=== PATIENT | female | born 1955 | race Two or more races ===

== ENCOUNTER 2023-10-09 10:45 | Inpatient (IN) | payer MEDICAID, OTHER ==
[~2023-10-09] VITALS: Ht 154.9 cm; Wt 60.0 kg
[2023-10-09 11:22] LABS: Basophils # (auto) 0 10 ^3/uL (0-0.2); Basophils % (auto) 0.6 % (0.0-2.0); Eosinophils # (auto) 0.1 10 ^3/uL (0-0.8); Eosinophils % (auto) 1.1 % (0.0-7.0); Hemoglobin 15.2 g/dL (12.2-16.2); Lymphocytes # (auto) 2.1 10 ^3/uL (0.4-5.4); Lymphocytes % (auto) 33.8 % (10.0-50.0); Mean Corpuscular Hemoglobin 28.6 pg (28.0-32.0); Mean Corpuscular Hgb Conc. 33.8 g/dL (32.0-36.0); Mean Corpuscular Volume 84.8 fL (80.0-100.0); Monocytes # (auto) 0.4 10 ^3/uL (0-1.3); Monocytes % (auto) 5.9 % (0.0-12.0); Neutrophils # (auto) 3.6 10 ^3/uL (1.6-8.6); Neutrophils % (auto) 58.6 % (37.0-80.0); Red Cell Distribution Width 13.7 % (11.8-14.3); White Blood Cell 6.2 10^3/uL (4.4-10.8)
[2023-10-09 11:30] LABS: Chloride 107 mmol/L (98-107); Potassium 3.5 mmol/L (3.5-5.1); Sodium 141 mmol/L (136-145)
[2023-10-09 11:31] LABS: Anion Gap 6 (5-15); Carbon Dioxide 28 mmol/L (20-30)
[2023-10-09 11:32] LABS: Calcium 9.6 mg/dL (8.7-10.4)
[2023-10-09 11:37] LABS: BUN/Creatinine Ratio 12.5 (10.0-20.0); Blood Urea Nitrogen 8 mg/dL (9-23); Glucose 105 mg/dL (74-106)
[2023-10-09] MEDS ORDERED: hydrALAZINE HCL 20 MG/ML VL IV PRN (15:30)
[2023-10-09] MEDS ORDERED: MORPHINE SULFATE INJ 2 MG/ml SYRG IV PRN (15:30)
[2023-10-09] MEDS ORDERED: DOCUSATE SOD 100 MG CAP PO PRN (15:30)
[2023-10-09] MEDS ORDERED: ONDANSETRON HCL 4 MG/2 ML VIAL IV PRN (15:30)
[2023-10-09] MEDS ORDERED: ACETAMINOPHEN 325 MG TAB PO PRN (15:30)
[2023-10-09] MEDS ORDERED: NITROGLYCERIN 0.4 MG SL TAB SL PRN (15:30)
[2023-10-09 16:09] LABS: Urine Bacteria FEW /hpf (None Seen); Urine Blood Negative /uL (Negative); Urine Clarity Clear (Clear); Urine Color Colorless (Yellow); Urine Protein, UAD Negative (Negative); Urine Specific Gravity 1.009 (1.001-1.035); Urine Urobilinogen Normal (Negative); Urine WBC 1 /hpf (0 - 5)
[2023-10-09 20:40] VITALS: PULSE 69; RESP 16; O2SAT 98
[2023-10-09] MEDS: LISINOPRIL 5 MG TAB PO ONE (20:49)
[2023-10-09] MEDS: ASPirin 81 mg TAB PO ONE (20:49)
[2023-10-09] MEDS: hydroCHLOROthiazide 25 MG TAB PO ONE (20:49)
[2023-10-09] MEDS: cloNIDine HCL 0.1 MG TAB PO ONE (20:50)
[2023-10-09 22:28] VITALS: BP 125/59; PULSE 59; RESP 16; TEMP 97.9; O2SAT 98
[2023-10-10] VITALS (9 sets, daily range): BP systolic 90–143; BP diastolic 38–74; PULSE 61–79; RESP 16–19; TEMP 97.6–99.3; O2SAT 92–100
[2023-10-10 06:27] LABS: Basophils # (auto) 0 10 ^3/uL (0-0.2); Basophils % (auto) 0.6 % (0.0-2.0); Eosinophils # (auto) 0.1 10 ^3/uL (0-0.8); Hematocrit 37.9 % (36.0-46.0); Lymphocytes # (auto) 1.5 10 ^3/uL (0.4-5.4); Lymphocytes % (auto) 29.8 % (10.0-50.0); Mean Corpuscular Hgb Conc. 34.4 g/dL (32.0-36.0); Mean Corpuscular Volume 84.3 fL (80.0-100.0); Monocytes # (auto) 0.4 10 ^3/uL (0-1.3); Neutrophils # (auto) 2.9 10 ^3/uL (1.6-8.6); Neutrophils % (auto) 59.6 % (37.0-80.0); Red Cell Distribution Width 13.6 % (11.8-14.3); White Blood Cell 4.9 10^3/uL (4.4-10.8)
[2023-10-10 06:31] LABS: Alanine Aminotransferase 26 U/L (7-40); Albumin 3.8 g/dL (3.2-4.8); Alkaline Phosphatase 94 U/L (46-116); Anion Gap 10 (5-15); Aspartate Aminotransferase 23 U/L (13-40); BUN/Creatinine Ratio 19.5 (10.0-20.0); Blood Urea Nitrogen 17 mg/dL (9-23); Carbon Dioxide 24 mmol/L (20-30); Chloride 107 mmol/L (98-107); Glucose 103 mg/dL (74-106); LDL Cholesterol 160 mg/dL (< 100); Potassium 3.7 mmol/L (3.5-5.1); Sodium 141 mmol/L (136-145); Triglycerides 154 mg/dL (< 150)
[2023-10-10 06:32] LABS: Bilirubin, Total 0.6 mg/dL (0.2-1.0); Cholesterol 212 mg/dL (< 200); HDL Cholesterol 46 mg/dL (40-59); Total Protein 6.4 g/dL (5.7-8.2)
[2023-10-10] MEDS: hydroCHLOROthiazide 25 MG TAB PO SCH (10:00)
[2023-10-10] MEDS: ASPirin-EC 81 mg tab PO SCH (10:00)
[2023-10-10] MEDS: LISINOPRIL 5 MG TAB PO SCH (10:00)
[2023-10-10] MEDS: ATORVASTATIN 20 MG TAB PO SCH (21:13)
[2023-10-11 01:00] VITALS: BP 119/56; PULSE 67; RESP 16; TEMP 98.8; O2SAT 94
[2023-10-11 05:00] VITALS: BP 101/52; PULSE 85; RESP 17; TEMP 98.7; O2SAT 96
[2023-10-11 07:30] VITALS: PULSE 60
[2023-10-11 09:00] VITALS: BP 109/57; PULSE 72; RESP 18; TEMP 97.6; O2SAT 93
[2023-10-11 11:35] LABS: Amphetamine Screen, Urine Neg (NEGATIVE); Benzodiazephine Screen, Urine Neg (NEGATIVE)
[2023-10-11 11:36] LABS: Barbiturate Scree,Urine Neg (NEGATIVE); Cannabinoid Screen, Urine Neg (NEGATIVE); Cocaine Screen, Urine Neg (NEGATIVE); Opiate Scree,Urine Neg (NEGATIVE); Phencyclidine Screen, Urine Neg (NEGATIVE)
[2023-10-11 13:18] VITALS: BP 106/60; PULSE 78; RESP 18; TEMP 97.7; O2SAT 94
[2023-10-11] MEDS ORDERED: ATOR20TA PO (13:38)
[2023-10-11] MEDS ORDERED: LISI10TA34 PO (13:38)
[2023-10-11 14:43] VITALS: BP 109/57; TEMP 36.5
[2023-10-12 08:57] LABS: Hepatitis B Surface Antigen Negative (Negative)
[2023-10-12 09:19] LABS: Hepatitis C Antibody Negative (Negative)
== END 2023-10-11 16:01 | disposition home or self-care (01) | DRG 199 ==
LOC: ER 10:45 → TELE 15:27 → TELE-WESTW 22:20
PROVIDERS: ADMIT Nurse Practitioner Family; ATTEND Internal Medicine Geriatric Medicine
DX: I16.0 Hypertensive urgency (principal); E78.2 Mixed hyperlipidemia; F41.9 Anxiety disorder, unspecified; H53.8 Other visual disturbances; Z79.899 Other long term (current) drug therapy; Z83.3 Family history of diabetes mellitus
CPT/HCPCS: 36415; 70450; 71046; 80048; 80053; 80061; 80307; 81001; 83036; 84443; 84484; 85025; 86803; 87340; 93005; 93306; 93886; G0378